=== PATIENT | male | born 1960 | race Caucasian/White ===

== ENCOUNTER → 2023-01-06 | Day surgery (SDC) | payer OTHER ==
[~2023-01-06] MED LIST: BALANCED SALT 15 ML OPHTHALMIC IRRIG.SOLN IO ONE; CHONDR SULF A SOD/HYALURONATE 1.05 ML KIT IO ONE; EPINEPHrine 1:1,000 [1 MG/ML] VIAL ET ONE; FentaNYL CITRATE PF 100 MCG/2 ML VIAL IVP ONE; KETOROLAC TROMETHAMINE 0.5% 5 ML OPHTHALMIC SOLUTION ONE; LIDOCAINE/PF 1% 2 ML VIAL CAUDAL ONE; MIDAZOLAM HCL 2 MG/2 ML VIAL IVP ONE; MOXIFLOXACIN HCL 0.5% 3 ML OPHTHALMIC SOLUTION ONE; PHENYLEPHRINE HCL 2.5% 2 ML OPHTHALMIC SOLUTION ONE; POVIDONE-IODINE 5% 30 ML OPHTHALMIC SOLUTION OD ONE; RINGERS SOLUTION,LACTATED 500 ML IV ONE; TROPICAMIDE 1% 2 ML OPHTHALMIC SOLUTION ONE
[2023-01-06] MEDS: KETOROLAC TROMETHAMINE 0.5% 5 ML OPHTHALMIC SOLUTION OS SCH ×3 (09:44→09:56)
[2023-01-06] MEDS: TROPICAMIDE 1% 2 ML OPHTHALMIC SOLUTION OS SCH ×3 (09:44→09:56)
[2023-01-06] MEDS: PHENYLEPHRINE HCL 2.5% 2 ML OPHTHALMIC SOLUTION OS SCH ×3 (09:45→09:56)
[2023-01-06] MEDS: MOXIFLOXACIN HCL 0.5% 3 ML OPHTHALMIC SOLUTION OS SCH ×3 (09:45→09:56)
== END | disposition still patient (30) ==
LOC: SURGERY 09:05
PROVIDERS: ATTEND Ophthalmology
DX: H25.12 Age-related nuclear cataract, left eye (principal); Z79.899 Other long term (current) drug therapy; Z88.0 Allergy status to penicillin; Z98.890 Other specified postprocedural states
CPT/HCPCS: 93005; 66984; J0171; J3010; J3490; J2250; Q9967; J7120; V2632

== ENCOUNTER 2023-10-06 07:00 | Day surgery (SDC) | payer OTHER ==
[~2023-10-06 07:00] MED LIST changes: -BALANCED SALT 15 ML OPHTHALMIC IRRIG.SOLN IO ONE; +BALANCED SALT 15 ML OPHTHALMIC IRRIG.SOLN ONE; -CHONDR SULF A SOD/HYALURONATE 1.05 ML KIT IO ONE; -EPINEPHrine 1:1,000 [1 MG/ML] VIAL ET ONE; +EPINEPHrine 1:1,000 [1 MG/ML] VIAL ONE; -FentaNYL CITRATE PF 100 MCG/2 ML VIAL IVP ONE; +KETOROLAC TROMETHAMINE 0.5% 5 ML OPHTHALMIC SOLUTION OD SCH; -KETOROLAC TROMETHAMINE 0.5% 5 ML OPHTHALMIC SOLUTION ONE; -LIDOCAINE/PF 1% 2 ML VIAL CAUDAL ONE; +LIDOCAINE/PF 1% 2 ML VIAL ONE; -MIDAZOLAM HCL 2 MG/2 ML VIAL IVP ONE; +MOXIFLOXACIN HCL 0.5% 3 ML OPHTHALMIC SOLUTION OD SCH; -MOXIFLOXACIN HCL 0.5% 3 ML OPHTHALMIC SOLUTION ONE; +PHENYLEPHRINE HCL 2.5% 2 ML OPHTHALMIC SOLUTION OD SCH; -PHENYLEPHRINE HCL 2.5% 2 ML OPHTHALMIC SOLUTION ONE; -POVIDONE-IODINE 5% 30 ML OPHTHALMIC SOLUTION OD ONE; +POVIDONE-IODINE 5% 30 ML OPHTHALMIC SOLUTION ONE; +TETRACAINE HCL/PF 0.5% 4 ML OPHTHALMIC SOLUTION ONE; +TROPICAMIDE 1% 2 ML OPHTHALMIC SOLUTION OD SCH; -TROPICAMIDE 1% 2 ML OPHTHALMIC SOLUTION ONE
== END 2023-10-06 10:41 | disposition home or self-care (01) ==
LOC: SURGERY 07:00
PROVIDERS: ATTEND Ophthalmology
DX: H25.11 Age-related nuclear cataract, right eye (principal); Z53.8 Procedure and treatment not carried out for other reasons
CPT/HCPCS: J0171; J3490; Q9967